=== PATIENT | female | born 1985 | race Caucasian/White ===

== ENCOUNTER 2019-08-16 10:58 | Emergency (ER) | payer SELFPAY ==
[2019-08-16 11:04] VITALS: BMI 27.1
[2019-08-16 12:39] LABS: BASO % 0.6 % (0-2.0); HEMATOCRIT 42.9 % (32.4-45.2); HEMOGLOBIN 14.9 GM/dL (10.7-15.3); LYMPH % 22.9 % (8-40); MCH 32.1 pg (25.7-33.7); MCHC 34.7 g/dl (32.0-36.0); MEAN CELL VOLUME 92.6 fl (80-96); MEAN PLT VOLUME 8.3 fl (7.5-11.1); MONO % 9.5 % (3.8-10.2); PLATELET COUNT 236 K/MM3 (134-434); RBC 4.63 M/mm3 (3.60-5.2); WHITE BLOOD COUNT 8.7 K/mm3 (4.0-10.0)
--- NOTE | 2019-08-16 12:47 | PDOC ---
History of Present Illness - General Chief Complaint: Vaginal Bleeding Stated Complaint: VAGINAL BLEEDING Time Seen by Provider: 08/16/19 12:05 - History of Present Illness Initial Comments: Audrey Rodriguez is a 33yo A2 woman, currently 6wks by LMP () who presents with vaginal spotting for the past week. She reports that she had her annual PAP one week ago at [facility] and then has had slight spotting since then. The spotting was initially brown but became more red yesterday. Ms Rodriguez also reports some cramping pain in the b/l lower abdomen and low back, similar to period cramps, and up to 7/10 in intensity. She has not tried taking any acetaminophen or anything else for the pain. She denies any upper abdominal pain, fever/chills, dysuria, change in bowel habits, additional vaginal discharge, or any other current symptoms. Past History - Past Medical History Allergies/Adverse Reactions: Allergies Allergy/AdvReac Type Severity Reaction Status Date / Time No Known Allergies Allergy Verified 08/16/19 11:04 COPD: No - Immunization History Immunization Up to Date: Yes - Psycho Social/Smoking Cessation Hx Smoking History: Current every day smoker Have you smoked in the past 12 months: Yes Number of Cigarettes Smoked Daily: 5 Information on smoking cessation initiated: Yes Hx Alcohol Use: No Drug/Substance Use Hx: No Review of Systems - Review of Systems Comments:: General: No fevers, no chills, no weight or appetite change, no malaise HEENT: No changes in vision, no changes in hearing, no congestion, no sore throat CV: No chest pain, no palpitations, no LE edema Pulm: No SOB, no cough, no wheezing GI: No nausea or vomiting, no change in bowel habits, no melena : No frequency, no urgency, no dysuria. See HPI Musc: No back pain, no joint swelling, no recent injury Skin: No rash, no lesions, no erythema Endo: No excessive thirst, no heat/cold intolerance Heme: No unusual bruising or bleeding, no swollen glands Neuro: No syncope, no numbness/tingling, no focal weakness Vasc: No claudication Psych: No recent change in mood, no SI or HI *Physical Exam - Vital Signs Last Vital Signs Temp Pulse Resp BP Pulse Ox 97.7 F 72 17 125/71 99 08/16/19 11:01 08/16/19 11:01 08/16/19 11:01 08/16/19 11:01 08/16/19 11:01 - Physical Exam General: Comfortable, no acute distress HEENT: Atraumatic, PERRL, EOMI, MMM, voice normal Cards: RRR, no murmur appreciated Pulm: Comfortable on room air, clear to auscultation bilaterally Abd: Soft, nontender, nondistended : Normal external genitalia. Slightly brownish physiologic discharge but no bleeding seen. No CMT, no adnexal TTP. Os closed. Ext: Atraumatic. No LE edema. Moves all extremities. WWP Skin: Normal color, no rashes or lesions Neuro: A&Ox3, CN grossly intact, normal speech, motor/sensory grossly intact and symmetric Psych: Mood appropriate to situation ED Treatment Course - LABORATORY CBC & Chemistry Diagram: 08/16/19 12:20 08/16/19 12:20 Medical Decision Making - Medical Decision Making 08/16/19 12:17 Audrey Rodriguez is a 33yo A2 woman, currently 6wks by LMP () who presents with vaginal spotting for the past week along with cramping low back and abdominal pain similar to period cramps. - No bleeding on exam, no tenderness or other concerning findings - Threatened v inevitable v complete miscarriage or normal as there is no bleeding currently - CBC, CMP, bHCG, UA - Acetaminophen for pain - TVUS pending confirmed 08/16/19 12:59 - Preg positive - Ultrasound ordered 08/16/19 14:18 - Labs unremarkable - TVUS completed. IUP measuring 5w5d by CRL and 6w0d by GS. FRH 118. Official US report pending - Will most likely d/c home with OB follow up pending radiology report 08/16/19 15:10 - Radiology agrees w/ ED read of US. IUP w/ FHR 118, estimated 5w5d gestation - Blood type B+ - Will d/c home Discussed with Dr Miki Velarde PGY2 Discharge - Discharge Information Problems reviewed: Yes Clinical Impression/Diagnosis: Threatened Condition: Stable Disposition: HOME - Admission No - Follow up/Referral Referrals: Jeff Pickens MD [Staff Physician] - [facility] [Provider Group] Angel Latif MD [Staff Physician] - Alice Uriostegui MD [Staff Physician] - - Patient Discharge Instructions Patient Printed Discharge Instructions: DI for Threatened , DI for -- Discomforts and Remedies Additional Instructions: Discharge Instructions: You were seen in the emergency department for bleeding in early . This can occur with a normal but can also be a sign of a problem with the or miscarriage. In the hospital, all of your blood tests and ultrasound were normal. Your was found to be almost 6 weeks along on ultrasound (5 weeks 5 days). Home Care: - Make sure you are taking vitamins. These can help the develop normally - You may take acetaminophen (Tylenol) 650-1000mg every 6-8 hours as needed for pain. You can also try a heating pad for cramping pain. - DO NOT take ibuprofen (Advil or Tylenol) or naproxen (Aleve) while you are - Make an appointment to follow up with an registration clerk within the next few weeks. If you need a new registration clerk, you have been given contact information for several doctors. - Seek immediate care for worsening symptoms, severe pain, heavy vaginal bleeding, any chest pain or shortness of breath, or any other medical emergency. Instrucciones de descarga: La vieron en el departamento de emergencias por sangrado al comienzo del embarazo. [place] puede ocurrir con un embarazo normal, juan m tambin puede ser un signo de un problema con el embarazo o un aborto espontneo. En el hospital, todos sadia anlisis de fernanda y ultrasonido fueron normales. Se descubri que montes de oca embarazo tard teja 6 semanas en la ecografa (5 semanas 5 mckeon). Cuidados en el hogar: - Asegrese de manuel vitaminas prenatales. Estos pueden ayudar al embarazo a desarrollarse normalmente - Puede manuel acetaminofn (Tylenol) 650-1000mg cada 6-8 horas segn sea necesario para el dolor. Tambin puede probar selena almohadilla trmica para el dolor de calambres. - NO tome ibuprofeno (Advil o Tylenol) o naproxeno (Aleve) mientras est embarazada - Sara selena gracia para hacer un seguimiento con un obstetra en las prximas semanas. Si necesita un nuevo obstetra, se le kendrick proporcionado informacin de contacto de varios mdicos. - Busque atencin inmediata para empeorar los sntomas, dolor intenso, sangrado vaginal abundante, cualquier dolor en el pecho o falta de aliento, o cualquier otra emergencia mdica. Print Language: PRYDEINIG - Post Discharge Activity
[2019-08-16] MEDS ORDERED: SODIUM CHLORIDE 0.9% 500 ML INFUS.BAG IV ONE (13:01)
[2019-08-16] MEDS: ACETAMINOPHEN 1000 MG/100 ML VIAL (NON FORMULARY) IVPB ONE ×2 (13:06→13:11)
[2019-08-16] MEDS ORDERED: ACETAMINOPHEN INJECTION 100 ML IVPB ONE (13:08)
[2019-08-16 13:15] LABS: ALBUMIN 3.8 g/dl (3.4-5.0); BILIRUBIN,TOTAL 0.4 mg/dL (0.2-1); BLOOD UREA NITROGEN 9.4 mg/dL (7-18); CALCIUM 9.3 mg/dL (8.5-10.1); CREATININE 0.6 mg/dL (0.55-1.3); POTASSIUM 3.6 mmol/L (3.5-5.1); TOT PROT 7.8 g/dl (6.4-8.2)
--- NOTE | 2019-08-16 13:27 | PDOC ---
Documentation entered by Ibis Morrow SCRIBE, acting as scribe for Royer Livingston MD. Royer Livingston MD: This documentation has been prepared by the Cristhian johnson Adrianna, SCRIBE, under my direction and personally reviewed by me in its entirety. I confirm that the documentation accurately reflects all work, treatment, procedures, and medical decision making performed by me. Attending Attestation - Resident Resident Name: SydKaylin - ED Attending Attestation I have performed the following: I have examined & evaluated the patient, The case was reviewed & discussed with the resident, I agree w/resident's findings & plan, Exceptions are as noted - HPI HPI: The patient is a 33 year old female (A2- currently at ~6 weeks gestation by LMP on 07/02/19), with a significant PMH of , who presents to the ED for evaluation for vaginal spotting for one week. Patient notes she had her annual PAP smear last [facility] at [facility], and developed light spotting following. Patient notes the spotting was originally brown in color, but has now transitioned into red in color. She reports associated lower abdominal/ suprapubic cramping, which she notes is a 7/10 in nature and feels like her menstrual cramps. Allergies: NKA, NKDA Surgical History: None reported Social History: Current everyday smoker (5 cigarettes per day). Denies EtOH or illicit drug use. - Physicial Exam PE: 08/16/19 13:29 See resident exam - Medical Decision Making 08/16/19 13:31 33 F with vaginal bleeding, 5 weeks by LMP. Will r/o ectopic. - Labs - TVUS 08/16/19 15:13 Labs wnl TVUS shows live IUP Pt Rh+ Pt is well appearing, with normal vitals. Clinically stable for DC at this time. I discussed the physical exam findings, ancillary test results and final diagnoses with the patient. I answered all of the patient's questions. The patient was satisfied with the care received and felt comfortable with the discharge plan and treatment plan. The patient agrees to follow up with the primary care physician within 24-72 hours. ED Treatment Course - LABORATORY CBC & Chemistry Diagram: 08/16/19 12:20 08/16/19 12:20 - ADDITIONAL ORDERS Additional order review: Laboratory Results 08/16/19 08/16/19 08/16/19 13:49 12:20 12:20 Sodium Potassium Chloride Carbon Dioxide Anion Gap BUN Creatinine Est GFR (CKD-EPI)AfAm Est GFR (CKD-EPI)NonAf Random Glucose Calcium Total Bilirubin AST ALT Alkaline Phosphatase Total Protein Albumin Beta HCG, Quant Urine Color Yellow Urine Appearance Cloudy Urine pH 5.5 Ur Specific [place] 1.028 Urine Protein Negative Urine Glucose (UA) Negative Urine Ketones Trace H Urine Blood Negative Urine Nitrite Negative Urine Bilirubin Negative Urine Urobilinogen 1.0 Ur Leukocyte Esterase Negative Urine HCG, Qual Positive Blood Type B POSITIVE Antibody Screen Negative 08/16/19 08/16/19 12:20 12:20 Sodium 138 Potassium 3.6 Chloride 105 Carbon Dioxide 27 Anion Gap 6 L BUN 9.4 Creatinine 0.6 Est GFR (CKD-EPI)AfAm 139.78 Est GFR (CKD-EPI)NonAf 120.61 Random Glucose 79 Calcium 9.3 Total Bilirubin 0.4 AST 17 ALT 31 Alkaline Phosphatase 66 Total Protein 7.8 Albumin 3.8 Beta HCG, Quant 35687.8 Urine Color Urine Appearance Urine pH Ur Specific [place] Urine Protein Urine Glucose (UA) Urine Ketones Urine Blood Urine Nitrite Urine Bilirubin Urine Urobilinogen Ur Leukocyte Esterase Urine HCG, Qual Blood Type Antibody Screen 08/16/19 12:20 RBC 4.63 MCV 92.6 MCHC 34.7 RDW 13.0 MPV 8.3 Neutrophils % 64.0 Lymphocytes % 22.9 Monocytes % 9.5 Eosinophils % 3.0 Basophils % 0.6 - RADIOLOGY Radiograph Interpretation: EXAM#: TYPE/EXAM: RESULT: [id number] US/TRANSVAGINAL US PREG Vaginal bleeding. 5 weeks . IMPRESSION: Early live intrauterine with estimated sonographic gestational age of 5 weeks 5 days based on the crown-rump length. heart activity was documented. Partially exophytic simple cyst/corpus luteum cyst in the left ovary measuring 1.5 x 1.1 cm Normal vascular flow in both ovaries. Reported By: Fabián Hugo MD 08/16/19 14:50 - Medications Given in the ED: ED Medications Discontinued Medications Generic Name Dose Route Start Last Admin Trade Name Freq PRN Reason Stop Dose Admin Acetaminophen 1,000 mg 08/16/19 13:01 08/16/19 13:11 Ofirmev Injection - IVPB 08/16/19 13:02 Not Given ONCE ONE Sodium Chloride 1,000 ml 08/16/19 13:01 08/16/19 13:05 Normal Saline - IV 08/16/19 13:02 1,000 ml ONCE ONE Administration
[2019-08-16 14:02] LABS: PH,URINE 5.5 (5.0-8.0); URINE APPEARANCE CLOUDY; URINE BILIRUBIN NEGATIVE (NEGATIVE); URINE COLOR YELLOW; URINE GLUCOSE (UA) NEGATIVE (NEGATIVE); URINE KETONE TRACE (NEGATIVE); URINE LEUK ESTERASE NEGATIVE (NEGATIVE); URINE NITRITE NEGATIVE (NEGATIVE); URINE PROTEIN NEGATIVE (NEGATIVE)
[2019-08-16 15:33] VITALS: BP 101/57; PULSE 62; TEMP 97.9
== END 2019-08-16 15:33 | disposition home or self-care (01) ==
LOC: JER 10:58
PROC: 3E0337Z Introduction of Electrolytic and Water Balance Substance into Peripheral Vein, Percutaneous Approach (ICD-10-PCS; principal; 2019-08-16)
DX: O26.891 Other specified pregnancy related conditions, first trimester (principal); Z3A.01 Less than 8 weeks gestation of pregnancy; O20.0 Threatened abortion; F17.210 Nicotine dependence, cigarettes, uncomplicated
CPT/HCPCS: 36415; 76817-TC; 80053; 81003; 84702; 84703; 85025; 86850; 86900; 86901; 87086; 99282-25; J0131

== ENCOUNTER 2019-11-27 16:49 | Emergency (ER) | payer OTHER ==
[2019-11-27 16:55] VITALS: BMI 27.4
--- NOTE | 2019-11-27 17:05 | PDOC ---
Rapid Medical Evaluation Chief Complaint: Vaginal Bleeding Time Seen by Provider: 11/27/19 16:57 Medical Evaluation: Allergies Allergy/AdvReac Type Severity Reaction Status Date / Time No Known Allergies Allergy Verified 11/27/19 16:55 Vital Signs Temp Pulse Resp BP Pulse Ox 97.6 F 69 18 104/63 100 11/27/19 16:50 11/27/19 16:50 11/27/19 16:50 11/27/19 16:50 11/27/19 16:50 11/27/19 16:59 Chief complaint: 25 weeks vaginal bleeding; LMP 07/01/2019 A2 Physical exam: gravid abdomen noted. No CVA tenderness Orders: Nothing Patient to proceed to labor and delivery for continued obstetrical evaluation. Discharge Disposition - Diagnosis Vaginal bleeding during - Referrals - Patient Instructions - Post Discharge Activity
[2019-11-27 18:05] VITALS: TEMP 99.1
[2019-11-27 19:01] LABS: EPI CELLS 19 /uL (0-25.1); HYALINE CASTS 1 /uL (0-3.1); URINE APPEARANCE CLEAR; URINE BACTERIA 3856 /uL (0-1359); URINE BILIRUBIN NEGATIVE (NEGATIVE); URINE COLOR YELLOW; URINE GLUCOSE (UA) NEGATIVE (NEGATIVE); URINE KETONE NEGATIVE (NEGATIVE); URINE LEUK ESTERASE 1+ (NEGATIVE); URINE NITRITE NEGATIVE (NEGATIVE); URINE PROTEIN NEGATIVE (NEGATIVE); URINE RBC 11 /uL (0-23.9); URINE UROBILINOGEN 0.2 mg/dL (0.2-1.0); URINE WBC 50 /uL (0-25.8)
[2019-11-27 21:40] VITALS: BP 101/57; PULSE 63
== END 2019-11-27 21:35 | disposition home or self-care (01) ==
LOC: JER 16:49
DX: O26.892 Other specified pregnancy related conditions, second trimester (principal); O46.92 Antepartum hemorrhage, unspecified, second trimester; Z3A.25 25 weeks gestation of pregnancy
CPT/HCPCS: 76830-TC; 81003; 99284-25

== ENCOUNTER 2020-02-28 21:53 | Emergency (ER) | payer OTHER ==
[2020-02-28 22:01] VITALS: BMI 29.2
[2020-02-28 22:52] LABS: BASO % 0.5 % (0-2.0); EOS % 1.5 % (0-4.5); HEMATOCRIT 36.6 % (32.4-45.2); HEMOGLOBIN 12.7 GM/dL (10.7-15.3); LYMPH % 14.6 % (8-40); MCH 31.7 pg (25.7-33.7); MCHC 34.8 g/dl (32.0-36.0); MEAN CELL VOLUME 91.2 fl (80-96); MEAN PLT VOLUME 8.6 fl (7.5-11.1); MONO % 7.7 % (3.8-10.2); NEUT % 75.7 % (42.8-82.8); PLATELET COUNT 194 K/MM3 (134-434); RBC 4.02 M/mm3 (3.60-5.2); RDW 13.4 % (11.6-15.6); WHITE BLOOD COUNT 10.9 K/mm3 (4.0-10.0)
[2020-02-28] MEDS ORDERED: ELECTROLYTE-148 SOLN 500 ML IV ONE (23:27)
[2020-02-28 23:28] LABS: ALBUMIN 2.9 g/dl (3.4-5.0); ALK PHOS 109 U/L (45-117); ANION GAP 10 MMOL/L (8-16); BILIRUBIN,TOTAL 0.3 mg/dL (0.2-1); BLOOD UREA NITROGEN 7.5 mg/dL (7-18); CHLORIDE 106 mmol/L (98-107); CO2 22 mmol/L (21-32); CREATININE 0.6 mg/dL (0.55-1.3); GLUCOSE,RANDOM 113 mg/dL (74-106); POTASSIUM 3.8 mmol/L (3.5-5.1); SGOT/AST 21 U/L (15-37); SGPT/ALT 18 U/L (13-61); SODIUM 139 mmol/L (136-145); TOT PROT 6.7 g/dl (6.4-8.2)
[2020-02-28 23:48] LABS: URIC ACID 3.3 mg/dL (2.6-7.2)
[2020-02-29] MEDS ORDERED: ELECTROLYTE-148 SOLN 250 ML IV ONE (00:27)
[2020-02-29 00:35] VITALS: BP 116/73; PULSE 99
[2020-02-29 00:50] LABS: EPI CELLS 12 /uL (0-25.1); HYALINE CASTS 1 /uL (0-3.1); URINE APPEARANCE CLOUDY; URINE BACTERIA 8988 /uL (0-1359); URINE BILIRUBIN NEGATIVE (NEGATIVE); URINE COLOR YELLOW; URINE GLUCOSE (UA) NEGATIVE (NEGATIVE); URINE KETONE TRACE (NEGATIVE); URINE LEUK ESTERASE 2+ (NEGATIVE); URINE NITRITE NEGATIVE (NEGATIVE); URINE PROTEIN TRACE (NEGATIVE); URINE RBC 4 /uL (0-23.9); URINE WBC 151 /uL (0-25.8)
[2020-02-29 01:04] VITALS: TEMP 98.1
[2020-02-29] MEDS ORDERED: ELECTROLYTE-148 SOLN 1,000 ML IV SCH (01:27)
== END 2020-02-29 02:10 | disposition home or self-care (01) ==
LOC: JER 21:53
PROC: 3E033GC Introduction of Other Therapeutic Substance into Peripheral Vein, Percutaneous Approach (ICD-10-PCS; principal; 2020-02-28)
DX: O36.8130 Decreased fetal movements, third trimester, not applicable or unspecified (principal); O26.893 Other specified pregnancy related conditions, third trimester; R00.2 Palpitations; Z3A.34 34 weeks gestation of pregnancy
CPT/HCPCS: 36415; 76817-TC; 76819-TC; 80053; 81003; 82570; 84156; 84443; 84484; 84550; 85025; 93005; 93010; 96365; 96366; 99285-25

== ENCOUNTER 2020-04-04 00:35 | Inpatient (IN) | payer OTHER ==
--- NOTE | 2020-04-04 01:21 | HP ---
Past Medical History - Primary Care Physician PCP:: Alice Uriostegui - Admission Chief Complaint: 34 yrs , 39.4/7 wks by dates & 38.6/7 wks by US , previous c/section admitted in labor. onset LP since 11.00 PM 04/03/20. pt was evaluated for labor at 6.00 PM 04/03/20 , she was in latent labor & sent home. pt desires TOLAC History of Present Illness: pnc with [facility] wt gain 25 lbs prnatal chart review 09/02/19 Bpos, hbsag neg, rubella pos, hiv neg,, varicella immune, hep c nr, sickle neg gc/ct neg 12/07/19 Quantiferon pos, , 1hr gtt 110 03/21/20 h/h 12.5/37.4 , plt 177 m GBS POS , gc/ct neg , hiv neg last us 03/26/20 , sliup 38.2 wks, efw , 7'8", vx, ant placenta , johnnie 21, bpp8/8 working EDC as per [facility] 04/07/20 NT screen & AFP neg . 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 Weeks Gestation by Dates: 39.4 ...EDC by Dates: 04/07/20 ...EDC by Sono: 04/12/20 (by 12 wks us , but MFM us report working EDC 04/07/20 ) Heme/Onc: No: Anemia Infectious Disease: Yes: Other (quantiferon Pos) Psych: Yes: Depression (mild depression, no meds , no therapist). No: Addictions, Anxiety, Bipolar, Panic, Psychosis, Schizophrenia Endocrine: No: Diabetes Mellitus, Hypothyroidism - Past Surgical History Past Surgical History: Yes: (12/22/2003) Hx Myomectomy: No Hx Transabdominal Cerclage: No - Smoking History Smoking history: Former smoker Have you smoked in the past 12 months: No Aproximately how many cigarettes per day: 5 - Alcohol/Substance Use Hx Alcohol Use: No History of Substance Use: reports: None - Social History ADL: Independent History of Recent Travel: No Home Medications - Allergies Allergies/Adverse Reactions: Allergies Allergy/AdvReac Type Severity Reaction Status Date / Time No Known Allergies Allergy Verified 02/28/20 22:00 - Home Medications Home Medications: Ambulatory Orders Vitamins (Sjr) - 1 tab PO DAILY 02/29/20 Physical Exam - Maternity Vital Signs: Pulse72 BP 122/75 Temp 98.4 Wt 170 lbs Selected Entries 04/04/20 01:05 Temperature 98.4 F Pulse Rate 72 Blood Pressure 122/75 Weight 170 lb Constitutional: Yes: Well Nourished, Moderate Distress Eyes: Yes: WNL HENT: Yes: WNL, Normocephalic Neck: Yes: WNL Cardiovascular: Yes: WNL Lungs: Clear to auscultation Breast(s): Yes: WNL - Abdominal Exam/OB Fundal Height: 38 Number of Fetuses: Single Presentation: Vertex (exam at 1.05AM) Contractions: Yes Regularity: Irregular (3-6-7 min) Intensity: Mod/Strong Monitor Mode: External Heart Rate (range): 150 Heart Rate Location: [facility] Category: I Accelerations: Non-Uniform Decelerations: None - Vaginal Exam/OB Vaginal Bleeding: Bloody Show Speculum Exam: No Dilatation (cm): 4-5 Effacement (%): 80 Amniotic Membrane Status: Intact (-2) Presentation: Vertex/Position Station: -2 - Physical Exam Musculoskeletal: Yes: WNL Extremities: Yes: WNL. No: Calf Tenderness Edema: LLE: 1+, RLE: 1+ Integumentary: Yes: Incision (pfannensteil scar), Tattoos Deep Tendon Reflex Grade: Normal +2 ...Motor Strength: WNL Psychiatric: Yes: WNL, Alert, Oriented - Labs Lab Results: Laboratory Tests 04/04/20 04/04/20 04/04/20 01:59 01:59 01:59 WBC 13.3 H Hgb 13.3 Hct 38.3 Plt Count 171 PT with INR 10.90 INR 0.92 PTT (Actin FS) 25.4 Sodium Potassium Chloride Carbon Dioxide BUN Creatinine Random Glucose Calcium Syphilis Serology Non-reactive Blood Type Antibody Screen 04/04/20 04/04/20 01:59 01:59 WBC Hgb Hct Plt Count PT with INR INR PTT (Actin FS) Sodium 138 Potassium 3.8 Chloride 107 Carbon Dioxide 21 BUN 9.4 Creatinine 0.5 L Random Glucose 77 Calcium 9.5 Syphilis Serology Blood Type B POSITIVE Antibody Screen Negative Hemorrhage Risk Assessment - Risk Factors Medium Risk Factors: Yes: Prior , uterine surgery,or multiple laparotomies Risk Score: 1 Risk Level: Medium Risk Problem List - Problems (1) with 38 completed weeks gestation Code(s): Z3A.38 - 38 WEEKS GESTATION OF (2) Previous section Code(s): Z98.891 - HISTORY OF UTERINE SCAR FROM PREVIOUS SURGERY (3) Positive GBS test Code(s): B95.1 - STREPTOCOCCUS, GROUP B, CAUSING DISEASES CLASSD ELSWHR Assessment/Plan 34 yrs . 38.6/7 wks by us & 39.4/7 wks by dates , previous c/s type unknown requests for TOLAC Pt is admitted in labor. she is aware of R/B/A not ltd to possible risk of rupture ut, hemorrhage, transfusion,& risk she is willing to continue TOLAC knowing risk. GBS Pos , prophylaxis IVAmpicillin reuests epidural labor analgesia Plan TOLAC.
[2020-04-04] MEDS ORDERED: AMPICILLIN SODIUM 2 GM VIAL ONE (01:28)
[2020-04-04] MEDS ORDERED: AMPICILLIN - 2 GM in SODIUM CHLORIDE 100 ML IVPB ONE (01:30)
[2020-04-04] MEDS: ELECTROLYTE-148 SOLN 1,000 ML IV SCH ×3 (01:30→06:45)
[2020-04-04 02:16] LABS: BASO % 0.5 % (0-2.0); EOS % 0.6 % (0-4.5); HEMATOCRIT 38.3 % (32.4-45.2); HEMOGLOBIN 13.3 GM/dL (10.7-15.3); LYMPH % 13.9 % (8-40); MCH 31.3 pg (25.7-33.7); MCHC 34.7 g/dl (32.0-36.0); MEAN CELL VOLUME 90.2 fl (80-96); MEAN PLT VOLUME 9.3 fl (7.5-11.1); MONO % 6.3 % (3.8-10.2); NEUT % 78.7 % (42.8-82.8); PLATELET COUNT 171 K/MM3 (134-434); RBC 4.25 M/mm3 (3.60-5.2); RDW 13.3 % (11.6-15.6); WHITE BLOOD COUNT 13.3 K/mm3 (4.0-10.0)
[2020-04-04 02:26] LABS: INR 0.92 (0.83-1.09); PROTHROMBIN TIME (PATIENT) 10.9 SEC (9.7-13.0)
[2020-04-04 02:29] LABS: ACTIVATED PTT 25.4 SECONDS (25.2-36.5)
[2020-04-04 02:32] LABS: BLOOD UREA NITROGEN 9.4 mg/dL (7-18); CALCIUM 9.5 mg/dL (8.5-10.1); CREATININE 0.5 mg/dL (0.55-1.3); POTASSIUM 3.8 mmol/L (3.5-5.1)
[2020-04-04 02:36] VITALS: BMI 31.1
[2020-04-04] MEDS ORDERED: PCA PUMP NR ONE ×2 (02:53→07:36)
[2020-04-04] MEDS ORDERED: FENTANYL/BUPIVACAINE/NS/PF - PCEA - 50 ML DISP.SYRIN EP ONE ×2 (02:53→07:36)
[2020-04-04] MEDS ORDERED: NALOXONE HCL 0.4 MG/ML VIAL IVPUSH PRN (03:01)
[2020-04-04] MEDS ORDERED: LIDO 2%/EPI 1:200000 PRESRVFRE (20 ML SDVIAL) ONE (03:03)
[2020-04-04] MEDS ORDERED: FENTANYL/BUPIVACAINE/NS/PF - PCEA - 50 ML DISP.SYRIN EP SCH (03:15)
[2020-04-04] MEDS ORDERED: AMPICILLIN SODIUM 1 GM VIAL ONE ×2 (05:25→08:45)
[2020-04-04] MEDS: AMPICILLIN - 1 GM in SODIUM CHLORIDE 100 ML IVPB SCH ×2 (05:30→09:00)
--- NOTE | 2020-04-04 06:01 | PN ---
Progress Note (short form) - Note Progress Note: 3.20 AM Epidural alnlgesia received 5.40AM: Cx /-2/AROM clear UC 3-4 min reg , FHR 145 -cat-1 Selected Entries 04/04/20 04:45 Pulse Rate 85 Blood Pressure 111/71 completed 2doses of IV Ampicillin Plan ct TOLAC Problem List - Problems (1) with 38 completed weeks gestation Code(s): Z3A.38 - 38 WEEKS GESTATION OF (2) Previous section Code(s): Z98.891 - HISTORY OF UTERINE SCAR FROM PREVIOUS SURGERY (3) Positive GBS test Code(s): B95.1 - STREPTOCOCCUS, GROUP B, CAUSING DISEASES CLASSD ELSWHR
--- NOTE | 2020-04-04 08:07 | PN ---
Progress Note (short form) - Note Progress Note: 8.00 AM ;CX 9/100/+2 FHR 135-140, Cat-1 UC 2-4 min Selected Entries 04/04/20 04/04/20 06:00 07:30 Temperature 98.4 F Pulse Rate 66 Blood Pressure 109/67 ct tolac Problem List - Problems (1) with 38 completed weeks gestation Code(s): Z3A.38 - 38 WEEKS GESTATION OF (2) Previous section Code(s): Z98.891 - HISTORY OF UTERINE SCAR FROM PREVIOUS SURGERY (3) Positive GBS test Code(s): B95.1 - STREPTOCOCCUS, GROUP B, CAUSING DISEASES CLASSD ELSWHR
[2020-04-04] MEDS ORDERED: LIDOCAINE HCL 1% PRESERVATIVE FREE - 30ML VIAL ONE (08:45)
[2020-04-04] MEDS ORDERED: OXYTOCIN 20 UNITS in 0.9% NS 20 UNIT/1,000 ML INFUS.BAG IV ONE ×2 (08:45→10:08)
[2020-04-04] MEDS ORDERED: METHYLERGONOVINE MALEATE 0.2 MG/1 ML AMP IM PRN (09:14)
[2020-04-04] MEDS ORDERED: BENZOCAINE 28 GM HEMORRHOIDAL OINTMENT TP PRN (09:43)
[2020-04-04] MEDS ORDERED: WITCH HAZEL 50% (TUCKS) 40 PAD/JAR PAD TP PRN (09:43)
[2020-04-04] MEDS ORDERED: BENZOCAINE 20% 57 GM BOTTLE TP PRN (09:43)
[2020-04-04] MEDS ORDERED: oxyCODONE HCL 5 MG TABLET PO PRN (09:43)
[2020-04-04] MEDS ORDERED: BISACODYL 10 MG SUPP.RECT RC PRN (09:43)
[2020-04-04] MEDS ORDERED: OXYTOCIN 20 UNITS in 0.9% NS 20 UNIT/1,000 ML INFUS.BAG IV SCH (09:45)
--- NOTE | 2020-04-04 09:56 | PN ---
Delivery - Delivery Vaginal Delivery: No Problems, V-Jonh (pt delievered vx layla position , uncontrolled delivery of the rest of body. Suction of mouth & nares done .cord segmentfor cord gas & cord blood collected . pt bleeding before delivery of placenta due to incomplete sepration, placenta & membranes delievered completely . MEU done ut intact & empty, bimanual massage given, IM Methergine also given. 1st degree laceration vagina near introitus noted rt lateral inner labium laceration bleeding , both sutured with chr catgut #2/0 . EBL 500 ml . 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 GBS Pos pnc 2, [facility] int[facility]art[facility] course uneventful
[2020-04-04] MEDS ORDERED: IBUPROFEN 600 MG TABLET (FP) PO ONE (10:07)
[2020-04-04] MEDS ORDERED: ACETAMINOPHEN 325 MG TABLET (FP) ONE (10:08)
[2020-04-04] MEDS: ACETAMINOPHEN 325 MG TABLET (FP) PO PRN ×2 (10:11→22:44)
[2020-04-04] MEDS: IBUPROFEN 600 MG TABLET (FP) PO PRN ×2 (10:12→22:45)
[2020-04-04 11:55] LABS: CORD HCO3 20.5 mmHg (20-29); CORD PCO2 39.7 mmHg (30-78); CORD pH 7.33 (7.14-7.44)
[2020-04-04 11:58] LABS: CORD BASE EXCESS -5.5 mmol/L (0-2); CORD HCO3 21.3 mmHg (20-29); CORD PCO2 46.3 mmHg (30-78); CORD pH 7.281 (7.14-7.44)
[2020-04-04] MEDS: PRENATAL VITAMINS W/ FOLIC ACID TABLET (FP) PO SCH (13:34)
[2020-04-04] MEDS: FERROUS SO4 325 MG TABLET (FP) PO SCH (18:19)
[2020-04-05] MEDS: ACETAMINOPHEN 325 MG TABLET (FP) PO PRN (05:59)
[2020-04-05] MEDS: IBUPROFEN 600 MG TABLET (FP) PO PRN (05:59)
--- NOTE | 2020-04-05 07:24 | DS ---
Physical Examination Vital Signs: Vital Signs Temperature 98.4 F 04/05/20 06:00 Pulse Rate 67 04/05/20 06:00 Respiratory Rate 18 04/05/20 06:00 Blood Pressure 105/62 04/05/20 06:00 O2 Sat by Pulse Oximetry (%) 99 04/04/20 10:05 Findings/Remarks: Ambulating, tolerating PO breast feeding, lochia decreased, voiding, desiring to go home Constitutional: Yes: No Distress HENT: Yes: Atraumatic Neck: Yes: Supple Cardiovascular: Yes: Regular Rate and Rhythm Respiratory: Yes: Regular Gastrointestinal: Yes: Normal Bowel Sounds ...Rectal Exam: Yes: Deferred Renal/: Yes: Other (mild lochia) Breast(s): Yes: Other Musculoskeletal: Yes: WNL Extremities: Yes: WNL Edema: Yes (no CT) Edema: LLE: Trace, RLE: Trace Integumentary: Yes: WNL Neurological: Yes: Alert, Oriented ...Motor Strength: WNL Psychiatric: Yes: Alert, Oriented Labs: CBC, BMP 04/04/20 01:59 04/04/20 01:59 Discharge Summary Problems reviewed: Yes Reason For Visit: LABOR ADMIT Current Active Problems Positive GBS test (Acute) , delivered, current hospitalization (Acute) Procedures: Principal: Vaginal delivery Hospital Course: Uncomplicated delivery and recovery. Requesting early discharge from hospital Plan of Treatment: Follow up in 3-4 weeks at health center Condition: Stable - Instructions Diet, Activity, Other Instructions: Post Instructions DIET: Continue good diet high in protein, calcium, and iron rich foods. Drink at least eight (8) glasses of water daily in addition to other fluids. ___ Regular diet MEDICATIONS: Continue vitamins and iron as previously directed. Motrin and Tylenol may be taken for minor discomfort. ACTIVITY: Mild to moderate exercise may be started in two (2) weeks. Take frequent rest periods. Resume normal activity after six (6) week check up. WOUND CARE OF OPERATIVE SITE: Continue use of perineal bottle until vaginal discharge stops. Keep area clean. Shower daily. Keep abdominal wound dry. Report any drainage or redness to physician. Tub baths, tampons and douches are not permitted for [address] Breast feeding & or Bottle feeding BREAST CARE: (For those that are not ): If engorgement occurs: Wear tight fitting bra. Take Tylenol or Motrin for pain. Apply cold packs (ice in bags to each breast ) FAMILY PLANNING: There are many control alternatives to pursue and they should be discussed at your first office visit. You may resume sexual activity after your six (6) week check up. (Remember, breast feeding is not a contraceptive) NEXT PHYSICIAN APPOINTMENT: Be certain to call for a three (3) week appointment, unless otherwise directed. Call Clinic or got to Emergency Dept if you have any of the following: Heavy vaginal bleeding Painful urination Leg pain Unusual odor noted to vaginal bleeding High fever Red streaking noted on breast Referrals: Alice Uriostegui MD [Staff Physician] - Disposition: HOME - Home Medications Comprehensive Discharge Medication List: Ambulatory Orders Vitamins (Sjr) - 1 tab PO DAILY 02/29/20 Acetaminophen [Tylenol .Regular Strength -] 650 mg PO Q3H PRN tablet 04/04/20 Benzocaine [Americaine 20% [place] -] 1 spray TP PRN PRN bottle 04/04/20 Ferrous Sulfate [Feosol] 325 mg PO DAILY #60 tab 04/04/20 Ibuprofen [Motrin -] 600 mg PO Q4H PRN #20 tablet 04/04/20 Miscellaneous Medical Supply [Breast Pump, Electronic] 1 each NR ASDIR #1 unit 04/04/20 Vitamins (Sjr) - 1 tab PO DAILY #30 tablet 04/04/20 Sennosides/Docusate Sodium [Pericolace -] 2 tablet PO HS PRN #0 tablet 04/04/20 Witch Aminah 50% (Tucks) [Tucks Pads -] 1 pad TP PRN PRN pad 04/04/20
[2020-04-05 08:30] LABS: BASO % 0.2 % (0-2.0); HEMATOCRIT 27.6 % (32.4-45.2); HEMOGLOBIN 9.5 GM/dL (10.7-15.3); LYMPH % 15.1 % (8-40); MCH 31.3 pg (25.7-33.7); MCHC 34.6 g/dl (32.0-36.0); MEAN CELL VOLUME 90.6 fl (80-96); MEAN PLT VOLUME 8.9 fl (7.5-11.1); NEUT % 77.7 % (42.8-82.8); PLATELET COUNT 142 K/MM3 (134-434); RBC 3.04 M/mm3 (3.60-5.2); RDW 13.6 % (11.6-15.6); WHITE BLOOD COUNT 13.9 K/mm3 (4.0-10.0)
[2020-04-05] MEDS: FERROUS SO4 325 MG TABLET (FP) PO SCH (08:34)
[2020-04-05] MEDS: PRENATAL VITAMINS W/ FOLIC ACID TABLET (FP) PO SCH (11:36)
[2020-04-05] MEDS ORDERED: DIPHTH,PERTUSS(ACELL),TET 0.5 ML DISP.SYRIN IM ONE (12:00)
[2020-04-05 13:57] VITALS: BP 104/57; PULSE 75; TEMP 98.2
[2020-04-05] MEDS ORDERED: SENNOSIDES/DOCUSATE COMBO (SENNA PLUS) TABLET (UD) PO PRN (22:00)
== END 2020-04-05 13:50 | disposition home or self-care (01) | DRG 560 ==
LOC: JDEL 00:35 → JLDR 01:05 → J3W 12:00
PROVIDERS: ADMIT Obstetrics & Gynecology; ATTEND Obstetrics & Gynecology
PROC: 10E0XZZ Delivery of Products of Conception, External Approach (ICD-10-PCS; principal; 2020-04-04)
PROC: 0W8NXZZ Division of Female Perineum, External Approach (ICD-10-PCS; 2020-04-04)
PROC: 0HQ9XZZ Repair Perineum Skin, External Approach (ICD-10-PCS; 2020-04-04)
PROC: 0UQMXZZ Repair Vulva, External Approach (ICD-10-PCS; 2020-04-04)
DX: O70.0 First degree perineal laceration during delivery (principal); O99.824 Streptococcus B carrier state complicating childbirth; Z98.891 History of uterine scar from previous surgery; Z3A.38 38 weeks gestation of pregnancy; Z37.0 Single live birth; F17.211 Nicotine dependence, cigarettes, in remission
CPT/HCPCS: 36415; 36600; 59409; 80048; 82803; 85025; 85610; 85730; 86780; 86850; 86900; 86901; U0003

== ENCOUNTER 2020-04-08 21:52 | Emergency (ER) | payer OTHER ==
[2020-04-08] MEDS ORDERED: ACETAMINOPHEN 500 MG TABLET (FP) PO ONE (21:58)
--- NOTE | 2020-04-08 21:58 | PDOC ---
Rapid Medical Evaluation Time Seen by Provider: 04/08/20 21:54 Medical Evaluation: Allergies Allergy/AdvReac Type Severity Reaction Status Date / Time No Known Allergies Allergy Verified 02/28/20 22:00 04/08/20 21:55 I have performed a brief in-person evaluation of this patient. CC: bodyaches s/p spontaneous . denies fevers. PE: No focal findings Orders: tylenol Patient will proceed to ED for further evaluation. Discharge Disposition - Diagnosis Myalgia - Referrals - Patient Instructions - Post Discharge Activity
[2020-04-08 21:59] VITALS: BP 112/58; PULSE 77; TEMP 98.5; BMI 31.6
[2020-04-08] MEDS ORDERED: ACETAMINOPHEN 325 MG TABLET (FP) ONE (22:09)
--- NOTE | 2020-04-08 23:02 | PDOC ---
History of Present Illness - General Chief Complaint: Pain Stated Complaint: BODY ACHES/MISCAIRAGE Time Seen by Provider: 04/08/20 21:54 - History of Present Illness Initial Comments: 04/08/20 22:43 34y/o F , 4 days after vaginal delivery , presents to the ED with 2 days of bilateral breast pain. pt reports pain starts near her axilla and radiates inward, Pt has been baby up until today, when child seemed to have difficulties latching, denies any other discharge coming out other than milk. She took ibuprofen at home for pain with no relief. Pt denies fevers, chills, nausea, vomiting, cough, runny nose, Endorses generalized body aches. PMHx: as noted above ROS: as noted SHx: Denies Etoh, IVDA, tobacco use Allergies: NKDA ob/gy: dr. jean-claude davalos ROS: GENERAL/CONSTITUTIONAL: No fever or chills. No weakness. HEAD, EYES, EARS, NOSE AND THROAT: No change in vision. No ear pain or discharge. No sore throat. CARDIOVASCULAR: No chest pain or shortness of breath RESPIRATORY: No cough, wheezing, or hemoptysis. GASTROINTESTINAL: No nausea, vomiting, diarrhea or constipation. GENITOURINARY: No dysuria, frequency, or change in urination. MUSCULOSKELETAL: No joint or muscle swelling or pain. No neck or back pain. SKIN: No rash NEUROLOGIC: No headache, vertigo, loss of consciousness, or change in strength/sensation. ENDOCRINE: No increased thirst. No abnormal weight change HEMATOLOGIC/LYMPHATIC: No anemia, easy bleeding, or history of blood clots. ALLERGIC/IMMUNOLOGIC: No hives or skin allergy. PE: GENERAL: Awake, alert, and fully oriented, in no acute distress HEAD: No signs of trauma, normocephalic, atraumatic EYES: PERRLA, EOMI, sclera anicteric, conjunctiva clear BREAST: ttp axilla and right outer quadrant bilaterally. breast same size, no fluctuant mass palpated. firm to palpation ENT: Auricles normal inspection, hearing grossly normal, nares patent, oropharynx clear without exudates. Moist mucosa NECK: Normal ROM, supple, no lymphadenopathy, JVD, or masses LUNGS: No distress, speaks full sentences, clear to auscultation bilaterally HEART: Regular rate and rhythm, normal S1 and S2, no murmurs, rubs or gallops, p eripheral pulses normal and equal bilaterally. ABDOMEN: Soft, nontender, normoactive bowel sounds. No guarding, no rebound. No masses EXTREMITIES : Normal inspection, Normal range of motion, no edema. No clubbing or cyanosis NEUROLOGICAL: Cranial nerves II through XII grossly intact. Normal speech, normal gait, no focal sensorimotor deficits SKIN: Warm, Dry, normal turgor, no rashes or lesions noted 04/08/20 23:02 Past History - Medical History Allergies/Adverse Reactions: Allergies Allergy/AdvReac Type Severity Reaction Status Date / Time No Known Allergies Allergy Verified 02/28/20 22:00 Home Medications: Ambulatory Orders Vitamins (Sjr) - 1 tab PO DAILY 02/29/20 Acetaminophen [Tylenol .Regular Strength -] 650 mg PO Q3H PRN tablet 04/04/20 Benzocaine [Americaine 20% Solon -] 1 spray TP PRN PRN bottle 04/04/20 Ferrous Sulfate [Feosol] 325 mg PO DAILY #60 tab 04/04/20 Ibuprofen [Motrin -] 600 mg PO Q4H PRN #20 tablet 04/04/20 Miscellaneous Medical Supply [Breast Pump, Electronic] 1 each NR ASDIR #1 unit 04/04/20 Vitamins (Sjr) - 1 tab PO DAILY #30 tablet 04/04/20 Sennosides/Docusate Sodium [Pericolace -] 2 tablet PO HS PRN #0 tablet 04/04/20 Witch Aminah 50% (Tucks) [Tucks Pads -] 1 pad TP PRN PRN pad 04/04/20 Asthma: No Cancer: No Cardiac Disorders: No COPD: No Diabetes: No HTN: No Seizures: No Thyroid Disease: No - Immunization History Immunization Up to Date: Yes - Psycho-Social/Smoking History Smoking History: Never smoked Have you smoked in the past 12 months: No Number of Cigarettes Smoked Daily: 5 If you are a former smoker, when did you quit?: 2019 - Substance Abuse Hx (Audit-C & DAST Scrn) How often the patient has a drink containing alcohol: Never Score: In Men: 4 or > Positive; In Women: 3 or > Positive: 0 Screen Result (Pos requires Nsg. Audit-10AR): Negative In the last yr the pt used illegal drug/Rx for NonMed reason: No Score: Yes response is considered Positive: 0 Screen Result (Positive result requires Nsg. DAST-10): Negative *Physical Exam - Vital Signs Last Vital Signs Temp Pulse Resp BP Pulse Ox 98.5 F 77 19 112/58 L 98 04/08/20 21:55 04/08/20 21:55 04/08/20 21:55 04/08/20 21:55 04/08/20 21:55 ED Treatment Course - Medications Given in the ED: ED Medications Discontinued Medications Generic Name Dose Route Start Last Admin Trade Name Freq PRN Reason Stop Dose Admin Acetaminophen 975 mg 04/08/20 21:58 04/08/20 22:13 Tylenol - PO 04/08/20 21:59 975 mg ONCE ONE Administration Medical Decision Making - Medical Decision Making 04/08/20 23:03 34y/o F , 4 days after vaginal delivery , presents to the ED with 2 days of bilateral breast pain. pt reports pain starts near her axilla and radiates -has had difficulties (baby not latching) and has had to pump -last pumped 2 hours ago, but appears to have fallen behind on pumping schdule -pt has follow up with dr. davalos (ob) and pediatric follow up for child (dr. rust) instructed to use warm compresses, alternate motirn and tylenol for pain and to inform ob of this ED visit or if she develops any fevers. Discharge - Discharge Information Problems reviewed: Yes Clinical Impression/Diagnosis: Breast pain Condition: Stable Disposition: HOME - Follow up/Referral Referrals: Jean-Claude Davalos MD [Staff Physician] - - Patient Discharge Instructions Patient Printed Discharge Instructions: DI for Breast Pain (Mastalgia) Additional Instructions: volver a la kit de emergencias si desarrolla fiebre, escalofros -pus que drena del seno. -Dolor no aliviado con compresas calientes y usando motrin y tylenol. Print Language: WELSH - Post Discharge Activity
--- NOTE | 2020-04-08 23:16 | PDOC ---
Documentation entered by Rylee Lofton SCRIBE, acting as scribe for Karen Garrett MD. Karen Garrett MD: This documentation has been prepared by the scribe, Rylee Lofton SCRIBE, under my direction and personally reviewed by me in its entirety. I confirm that the documentation accurately reflects all work, treatment, procedures, and medical decision making performed by me. Attending Attestation - Resident Resident Name: GeovanniRayne - ED Attending Attestation I have performed the following: I have examined & evaluated the patient, The case was reviewed & discussed with the resident, I agree w/resident's findings & plan, Exceptions are as noted - HPI HPI: 04/08/20 22:23 Patient is a 34 year old female 4 days after vaginal delivery, who presents to the ED with bilateral breast pain x2 days. Patient stated she was breast-feeding her baby up until today due to the fact that the baby had "trouble latching on". Patient said the pain began at the side of her breasts and radiated inward towards chest. Patient disclosed that she attempted to self medicate prior to ED arrival with ibuprofen but experienced no relief. Patient endorses body aches generalized throughout her body. Patient denies: fevers, chills, runny nose, nausea, vomiting, cough, any discharge coming out of breasts, alcohol use, or any other related symptoms. Allergies: NKDA - Physicial Exam PE: 04/08/20 23:14 34 yo female gave 4 days ago and is breast feeding, she has c/o bilateral breast soreness head ncat neck supple breast both breast are moderately engorged and mild tenderness to palpation but no distinct erythema, no skin lesions abdomen no rebound extremities no erythema skin warm and dry neuro axox3,ambulatory 04/08/20 23:16 - Medical Decision Making 04/08/20 23:22 pt reports the infant is not latching on to her breasts and has started pumping her breasts . She has pumped 3x today. she has an appt this week with the nail technician on Discharge - Discharge Information Problems reviewed: Yes Clinical Impression/Diagnosis: Breast pain Condition: Stable Disposition: HOME - Follow up/Referral Referrals: Abril Lopez MD [Staff Physician] - - Patient Discharge Instructions Patient Printed Discharge Instructions: DI for Breast Pain (Mastalgia) Additional Instructions: volver a la kit de emergencias si desarrolla fiebre, escalofros -pus que drena del seno. -Dolor no aliviado con compresas calientes y usando motrin y tylenol. Print Language: AMHARIC - Post Discharge Activity
== END 2020-04-08 23:23 | disposition home or self-care (01) ==
LOC: JER 21:52
DX: N64.4 Mastodynia (principal)
CPT/HCPCS: 99284-25

== ENCOUNTER 2021-03-26 19:34 | Emergency (ER) | payer OTHER ==
[2021-03-26 20:08] VITALS: BP 103/62; PULSE 67; TEMP 98.8; BMI 31.4
[2021-03-26] MEDS ORDERED: ONDANSETRON 4 MG/2 ML VIAL IVPUSH ONE (21:44)
[2021-03-26] MEDS ORDERED: SODIUM CHLORIDE 1,000 ML IV STA (21:44)
[2021-03-26] MEDS ORDERED: ACETAMINOPHEN 1000 MG/100 ML VIAL (NON FORMULARY) IVPB ONE (21:44)
[2021-03-26] MEDS ORDERED: MAG HYDROX/AL HYDROX/SIMETH 30 ML UNIT-DOSE CUP PO ONE (21:47)
[2021-03-26] MEDS ORDERED: ONDANSETRON 4 MG/2 ML VIAL ONE (22:16)
[2021-03-26] MEDS ORDERED: MAG HYDROX/AL HYDROX/SIMETH 30 ML UNIT-DOSE CUP ONE (22:16)
[2021-03-26] MEDS ORDERED: ACETAMINOPHEN INJECTION 100 ML IVPB ONE (22:16)
[2021-03-26 23:02] LABS: BASO % 0.2 % (0-2.0); EOS % 1.7 % (0-4.5); HEMATOCRIT 37.8 % (32.4-45.2); HEMOGLOBIN 13.2 GM/dL (10.7-15.3); LYMPH % 20.8 % (8-40); MCH 31.7 pg (25.7-33.7); MCHC 34.9 g/dl (32.0-36.0); MEAN CELL VOLUME 90.9 fl (80-96); MEAN PLT VOLUME 7.9 fl (7.5-11.1); MONO % 7.2 % (3.8-10.2); NEUT % 70.1 % (42.8-82.8); PLATELET COUNT 197 10^3/uL (134-434); RBC 4.16 M/mm3 (3.60-5.2); RDW 13.5 % (11.6-15.6); WHITE BLOOD COUNT 11.7 K/mm3 (4.0-10.0)
[2021-03-26 23:30] LABS: ALBUMIN 3.3 g/dl (3.4-5.0)
[2021-03-26 23:33] LABS: CREATININE 0.5 mg/dL (0.55-1.3)
[2021-03-26 23:34] LABS: BILIRUBIN,TOTAL 0.3 mg/dL (0.2-1); TOT PROT 7.6 g/dl (6.4-8.2)
[2021-03-27 00:23] LABS: HCG,QUALITATIVE URINE Positive
[2021-03-27 00:24] LABS: PH,URINE 6.5 (5.0-8.0); URINE APPEARANCE CLEAR; URINE BILIRUBIN NEGATIVE (NEGATIVE); URINE COLOR YELLOW; URINE GLUCOSE (UA) NEGATIVE (NEGATIVE); URINE KETONE 2+ (NEGATIVE); URINE LEUK ESTERASE NEGATIVE (NEGATIVE); URINE NITRITE NEGATIVE (NEGATIVE); URINE PROTEIN NEGATIVE (NEGATIVE)
== END 2021-03-27 01:06 | disposition home or self-care (01) ==
LOC: JER 19:34
PROC: 3E0337Z Introduction of Electrolytic and Water Balance Substance into Peripheral Vein, Percutaneous Approach (ICD-10-PCS; principal; 2021-03-26)
DX: O26.892 Other specified pregnancy related conditions, second trimester (principal); R10.9 Unspecified abdominal pain; Z3A.20 20 weeks gestation of pregnancy
CPT/HCPCS: 36415; 76815-TC; 80053; 81003; 83690; 84703; 85025; 87077; 87086; 99284-25

== ENCOUNTER 2021-08-02 01:27 | Inpatient (IN) | payer OTHER ==
[2021-08-02] MEDS ORDERED: ELECTROLYTE-148 SOLN 1,000 ML IV SCH (01:45)
[2021-08-02 02:55] VITALS: BMI 32.1
[2021-08-02] MEDS ORDERED: AMPICILLIN - 2 GM in SODIUM CHLORIDE 100 ML IVPB ONE (03:00)
[2021-08-02] MEDS ORDERED: AMPICILLIN SODIUM 2 GM VIAL ONE (03:07)
[2021-08-02 03:12] LABS: BASO % 0.4 % (0-2.0); EOS % 2.6 % (0-4.5); HEMATOCRIT 36.1 % (32.4-45.2); LYMPH % 21.3 % (8-40); MCH 31.9 pg (25.7-33.7); MCHC 35.9 g/dl (32.0-36.0); MEAN CELL VOLUME 88.8 fl (80-96); MEAN PLT VOLUME 8.8 fl (7.5-11.1); MONO % 9.1 % (3.8-10.2); NEUT % 66.6 % (42.8-82.8); PLATELET COUNT 173 10^3/uL (134-434); RBC 4.07 M/mm3 (3.60-5.2); RDW 13.1 % (11.6-15.6); WHITE BLOOD COUNT 9.9 K/mm3 (4.0-10.0)
[2021-08-02 03:27] LABS: INR 0.97 (0.83-1.09); PROTHROMBIN TIME (PATIENT) 10.9 SEC (9.7-13.0)
[2021-08-02 03:30] LABS: ACTIVATED PTT 25.4 SECONDS (25.2-36.5)
[2021-08-02 03:53] LABS: BLOOD UREA NITROGEN 11.9 mg/dL (7-18)
[2021-08-02 03:54] LABS: CREATININE 0.6 mg/dL (0.55-1.3)
[2021-08-02 03:55] LABS: CALCIUM 8.7 mg/dL (8.5-10.1)
[2021-08-02] MEDS ORDERED: AMPICILLIN SODIUM 1 GM VIAL ONE ×2 (06:15→11:23)
[2021-08-02] MEDS: AMPICILLIN - 1 GM in SODIUM CHLORIDE 100 ML IVPB SCH ×3 (06:50→15:11)
[2021-08-02] MEDS ORDERED: FENTANYL/BUPIVACAINE/NS/PF - PCEA - 50 ML DISP.SYRIN EP ONE (08:13)
[2021-08-02] MEDS ORDERED: PCA PUMP NR ONE (08:13)
[2021-08-02] MEDS ORDERED: BUPIVACAINE HCL/PF 0.25% (2.5MG/ML) 10 ML VIAL ONE (08:34)
[2021-08-02] MEDS ORDERED: NALOXONE HCL 0.4 MG/ML VIAL IVPUSH PRN (08:54)
[2021-08-02] MEDS: ELECTROLYTE-148 SOLN 1,000 ML IV SCH (09:00)
[2021-08-02] MEDS ORDERED: FENTANYL/BUPIVACAINE/NS/PF - PCEA - 50 ML DISP.SYRIN EP SCH (09:00)
[2021-08-02] MEDS ORDERED: OXYTOCIN 20 UNITS in 0.9% NS 20 UNIT/1,000 ML INFUS.BAG IV ONE ×2 (12:25→15:39)
[2021-08-02] MEDS ORDERED: LIDOCAINE HCL 1% PRESERVATIVE FREE - 30ML VIAL ONE (12:25)
[2021-08-02] MEDS ORDERED: ACETAMINOPHEN 325 MG TABLET (FP) PO PRN (13:51)
[2021-08-02] MEDS ORDERED: WITCH HAZEL 50% (TUCKS) 40 PAD/JAR PAD TP PRN (13:51)
[2021-08-02] MEDS ORDERED: BENZOCAINE 28 GM HEMORRHOIDAL OINTMENT TP PRN (13:51)
[2021-08-02] MEDS ORDERED: BISACODYL 10 MG SUPP.RECT RC PRN (13:51)
[2021-08-02] MEDS ORDERED: BENZOCAINE 20% 57 GM BOTTLE TP PRN (13:51)
[2021-08-02] MEDS ORDERED: OXYTOCIN 20 UNITS in 0.9% NS 20 UNIT/1,000 ML INFUS.BAG IV SCH (14:00)
[2021-08-02] MEDS: IBUPROFEN 600 MG TABLET (FP) PO PRN (20:53)
[2021-08-03 08:25] LABS: BASO % 0.2 % (0-2.0); EOS % 1.5 % (0-4.5); HEMATOCRIT 34.6 % (32.4-45.2); HEMOGLOBIN 12.1 GM/dL (10.7-15.3); MCH 31.9 pg (25.7-33.7); MCHC 35.1 g/dl (32.0-36.0); MEAN CELL VOLUME 90.9 fl (80-96); MEAN PLT VOLUME 8.9 fl (7.5-11.1); MONO % 7.1 % (3.8-10.2); NEUT % 72.2 % (42.8-82.8); PLATELET COUNT 168 10^3/uL (134-434); RBC 3.81 M/mm3 (3.60-5.2); RDW 13.1 % (11.6-15.6); WHITE BLOOD COUNT 12.1 K/mm3 (4.0-10.0)
[2021-08-03] MEDS: ELECTROLYTE-148 SOLN 1,000 ML IV SCH (08:58)
[2021-08-03] MEDS: IBUPROFEN 600 MG TABLET (FP) PO PRN (09:08)
[2021-08-03] MEDS ORDERED: DIPHTH,PERTUSS(ACELL),TET 0.5 ML DISP.SYRIN IM ONE (10:00)
[2021-08-03 15:03] VITALS: BP 96/58; PULSE 64; TEMP 97.2
[2021-08-03] MEDS ORDERED: SENNOSIDES/DOCUSATE COMBO (SENNA PLUS) TABLET (UD) PO PRN (22:00)
== END 2021-08-03 17:30 | disposition home or self-care (01) | DRG 560 ==
LOC: JDEL 01:27 → JLDR 01:45 → J3W 15:49
PROVIDERS: ADMIT Student in an Organized Health Care Education/Training Program; ATTEND Student in an Organized Health Care Education/Training Program
PROC: 10E0XZZ Delivery of Products of Conception, External Approach (ICD-10-PCS; principal; 2021-08-02)
DX: O34.219 Maternal care for unspecified type scar from previous cesarean delivery (principal); O69.2XX0 Labor and delivery complicated by other cord entanglement, with compression, not applicable or unspecified; Z3A.38 38 weeks gestation of pregnancy; Z37.0 Single live birth
CPT/HCPCS: 36415; 59409; 71045-TC-FY; 80048; 85025; 85610; 85730; 86780; 86850; 86900; 86901; 90715; C9803; U0003; U0005

== ENCOUNTER 2024-02-19 16:00 | Emergency (ER) | payer OTHER ==
[2024-02-19 16:26] VITALS: BP 106/61; PULSE 65; RESP 18; TEMP 98.2; BMI 29.8
[2024-02-19] MEDS ORDERED: IBUPROFEN 400 MG TABLET (FP) PO ONE (18:14)
[2024-02-19] MEDS ORDERED: METHOCARBAMOL 500 MG TABLET ONE (18:15)
[2024-02-19] MEDS: METHOCARBAMOL 500 MG TABLET PO ONE (18:18)
[2024-02-19] MEDS: IBUPROFEN 400 MG TABLET (FP) PO ONE (18:18)
== END 2024-02-19 20:39 | disposition home or self-care (01) ==
LOC: JER 16:00
DX: N64.4 Mastodynia (principal); M25.512 Pain in left shoulder; M25.511 Pain in right shoulder
CPT/HCPCS: 71046-TC-FY; 84703; 99284-25